=== PATIENT | male | born 1965 | race Caucasian/White ===

== ENCOUNTER 2017-03-08 14:38 | Emergency (ER) | payer OTHER ==
[~2017-03-08] VITALS: Ht 165.1 cm; Wt 59.0 kg
[~2017-03-08 14:38] MED LIST: HABITROL21 MG/24 H TD
[2017-03-08] MEDS ORDERED: MEDROL 4MG. DOSE4 MG PO (15:50)
[2017-03-08] MEDS ORDERED: BROMFED DM COU118 ML PO (15:50)
[2017-03-08] MEDS ORDERED: AUGMENTIN 875-1 EACH PO (15:50)
--- NOTE | 2017-03-08 15:51 | [facility] Report ---
History of Present Issue Date/Time Seen by Provider 03/08/17 1541 Visit Reason Pt arrived:Walked Presenting Problem:PT STATES SORE THROAT, VOMITING, CONGESTION, BODY ACHES AND HEADACHE SINCE SATURDAY Location if Accident: Onset of symptoms date/time:/ or onset unknown for:MEDICAL HX UNKNOWN Have you (or family members/close friends) recently traveled outside the [place]? N If Yes, where/when: Have you had exposure to infectious disease within the past month? TB? Other? Specify: Here w/ significant other c/o worsening PND, sinus pressure, rhinorrhea, nasal congestion, sore throat, cough, aches, intermittent fevers. Started Saturday, one week ago, with aches, chills, sore throat, fever. Fever now intermittent but feels overall, getting worse. Sinus pressure and malaise worse. Cough described as "tickle in throat". Denies SOA or wheezing. Worse at night. Hasn't really taken or tried anything for symptoms. Significant other w/ same symptoms "I think we keep passing it back and forth". Source patient, family Exam Limitations no limitations ALLERGIES Coded Allergies: No Known Allergies (10/17/16) History Medical History General CAD? No Angina: No ME: No Hypertension? No Hyperlipidemia? No CHF? No DVT? No PE? No COPD? No Asthma? No Anemia? No GERD? No Gastric ulcers? No GI Bleed? No Hernia? No Thyroid Problems? No Hypothyroidism? No CVA? No Seizures? No Diabetes? No Renal Insuffiency? No UTI? No Stones? No BPH? No GB Disease: No Nephritic Syndrome? No Asplenia? No Hepatitis? No Sickle Cell Disease? No Arthritis? No Migraines? No Cataracts? No Glaucoma? No MRSA? No HIV? No TB? No Anxiety? No Depression? No Cancer? No More? No Immunization HX DT/Tetanus 5-10 Years Ago Flu Refused Pneumonia Refuses Surgical Hx Previous Surgery?Y RIGHT ANKLE Family History Family HX Diabetes Yes CAD Yes Hypertension Yes Hyperlipidemia Yes Cancer Yes TB No Social History Smoking Hx Smoker: Former Smoker Tobacco: No Packs/day < 1 Pack Alcohol Alcohol: No Review of Systems All Other Systems Reviewed and Negative Constitutional see HPI Eyes denies drainage ENT see HPI. denies: ear pain, ear discharge. Respiratory see HPI Cardiovascular denies chest pain, denies palpitations Skin denies rash Psychiatric/Neurological denies headache Physical Exam Vital Signs Vital Signs Date Time Temp Pulse Resp B/P Pulse O2 O2 Flow FiO2 Ox Delivery Rate 03/08 1532 98.7 68 18 116/83 98 General Appearance normal appearance, no apparent distress Eye Exam - bilateral eye normal exam Ear, Nose, Throat nasal congestion, PND and cobblestoning of pharynx, normal EACs and TMs bilaterally, swollen boggy turbinates, moderate frontal sinus pressure Neck non-tender, supple Respiratory Status Yes: trachea midline, chest symmetrical, non productive cough. No: respiratory distress, use of accessory muscles, pain on inspiration, pain on expiration. Lung Sounds anterior: lungs clear. posterior: lungs clear. bilateral: lungs clear. Cardiovascular regular rate/rhythm, no peripheral edema, no murmur Neurologic alert Skin normal color, warm/dry Lymphatic no adenopathy (cervical) Medical Decision Making LABS/Meds/Orders Pt receiving controlled substance in ED? No Results/Orders Laboratory Tests 03/08/17 1535: Group A Strep Screen Cancelled Departure Departure Time of Disposition 1546 Disposition DC Home or Self Care(routine) Clinical Impression Primary Impression: Upper respiratory infection Qualifiers: URI type: unspecified URI Qualified Code: J06.9 - Acute upper respiratory infection, unspecified Secondary Impressions: Cough Sinusitis, acute Qualifiers: Sinusitis location: frontal Recurrence: non-recurrent Qualified Code: J01.10 - Acute frontal sinusitis, unspecified Condition STABLE Referrals NO REFERRAL Your primary care provider and if you don't have one, I recommend you get one. In the meantime, you will have no choice but to follow up here at [facility] or in the ER. Follow up IMMEDIATELY for new or worsening symptoms OR no noticeable improvement over the next 48-72 hours. 911 for difficulty breathing Patient Instructions DI for Cough -- Adult, DI for Sinusitis Additional Instructions * Start antibiotic. Sinus infections do not get better overnight. It may take 2- 3 days to notice much improvement so be sure to use conservative measures as discussed for symptoms. * Monitor temp. Tylenol and/or ibuprofen as needed. ER if fever no less than 101 despite alternating tylenol and ibuprofen * Encourage fluids, water, gatorade, powerade, pedialyte if /toddler/child * warm salt water gargles * warm fluids * sore throat lozenges * sleep elevated * humidifier/vaporizer * flonase 2 sprays each nostril daily but may take 2-3 days to notice improvement with it. This helps with sinus inflammation/pressure * Bromfed may cause drowsiness. Know how it effects you (or your child) before driving, caring for small children, or sending your child to school Follow up IMMEDIATELY for new or worsening symptoms OR no noticeable improvement over the next 48-72 hours. 911 for difficulty breathing. Discharge Counseling Counseled pt/family regarding diagnosis, medications/RX, home care, follow up needs Prescriptions Current Visit Scripts Amoxicillin/Potassium Clav (Augmentin 875-125 Tablet) 1 EACH PO BID #20 TAB Methylprednisolone (Medrol Dose [place]) 4 MG PO UD #1 [facility] TAKE DIRECTED ON PACKAGING D-METHORPHAN HB/P-EPD HCL/BPM (Bromfed Dm Cough Syrup) 10 ML PO QIDP PRN cough #240 ML at 1554
[2017-03-08 15:56] VITALS: BP 116/83
== END 2017-03-08 15:56 | disposition home or self-care (01) ==
LOC: UTC 14:38
DX: J06.9 Acute upper respiratory infection, unspecified (principal); J01.10 Acute frontal sinusitis, unspecified